=== PATIENT | female | born 1980 | race Caucasian/White ===

== ENCOUNTER 2022-10-14 22:39 | Inpatient (IN) | payer OTHER ==
[~2022-10-14] VITALS: Ht 167.6 cm; Wt 209.6 kg
[2022-10-14 23:10] VITALS: BP 140/81
--- NOTE | 2022-10-14 23:17 | NUR ---
TO LOBBY FOLLOWING TRIAGE
--- NOTE | 2022-10-14 23:30 | NUR ---
41 Y/O F presents with L flank pain radiating to shoulder. pt states bilateral ears are ringing with some flem and a headache. pt stated she had the flu xlast weekand has NV and denies diarrhea. pmh- asthma, htn, pre diabetic, surgery at 18 y/o R ovary removed and appendix. NKA
--- NOTE | 2022-10-14 23:51 | NUR ---
pt to bed 5 ambulatory
[2022-10-14] MEDS ORDERED: KETOROLAC 15 MG/ML VIAL IM ONE (23:55)
--- NOTE | 2022-10-15 00:04 | NUR ---
X-Ray at bedside.
[2022-10-15 00:09] LABS: BASOPHILS # (AUTO) 0.1 K/uL (0.00-0.22); BASOPHILS % (AUTO) 0.5 % (0.0-2.0); EOSINOPHILS # (AUTO) 0.1 K/uL (0-0.4); EOSINOPHILS % (AUTO) 1.2 % (0.0-4.0); LYMPHOCYTES # (AUTO) 3.1 K/uL (2.5-16.5); LYMPHOCYTES % (AUTO) 24.8 % (20.5-51.1); MEAN CORPUSCULAR HEMOGLOBIN 17 pg (27-31); MEAN CORPUSCULAR HGB CONC 29 g/dL (33-37); MEAN CORPUSCULAR VOLUME 59.1 fL (80-94); MONOCYTES # (AUTO) 0.9 K/uL (0.8-1.0); MONOCYTES % (AUTO) 7.3 % (1.7-9.3); NEUTROPHILS # (AUTO) 8.3 K/uL (1.8-7.7); NEUTROPHILS % (AUTO) 66.2 % (42.2-75.2); PLATELET COUNT (AUTO) 527 K/uL (140-450); RED BLOOD CELL COUNT(AUTO) 2.83 MIL/uL (4.20-5.40); RED CELL DISTRIBUTION WIDTH 22.7 % (11.6-13.7); WHITE BLOOD COUNT (AUTO) 12.5 K/uL (4.8-10.8)
[2022-10-15 00:17] LABS: HEMATOCRIT 16.7 % (36-48); HEMOGLOBIN 4.8 g/dL (12.0-16.0)
--- NOTE | 2022-10-15 00:24 | NUR ---
Dr. Lundberg examining patient.
[2022-10-15 00:26] LABS: ALBUMIN 2.6 g/dL (3.4-5.0); ANION GAP 13.2 (8-16); CARBON DIOXIDE 26.2 mmol/L (21-32); CREATININE 1.3 mg/dL (0.6-1.3); POTASSIUM 3.4 mmol/L (3.5-5.1); TOTAL BILIRUBIN 0.5 mg/dL (0.0-1.0)
[2022-10-15] MEDS ORDERED: MORPHINE SULFATE 4 MG/ML SYR IVP ONE (00:45)
[2022-10-15 00:53] LABS: BASOPHILS # (AUTO) 0.1 K/uL (0.00-0.22); BASOPHILS % (AUTO) 0.4 % (0.0-2.0); EOSINOPHILS # (AUTO) 0.1 K/uL (0-0.4); EOSINOPHILS % (AUTO) 1.2 % (0.0-4.0); LYMPHOCYTES # (AUTO) 3.1 K/uL (2.5-16.5); LYMPHOCYTES % (AUTO) 26.2 % (20.5-51.1); MEAN CORPUSCULAR HEMOGLOBIN 17 pg (27-31); MEAN CORPUSCULAR HGB CONC 28 g/dL (33-37); MEAN CORPUSCULAR VOLUME 59.8 fL (80-94); NEUTROPHILS # (AUTO) 7.7 K/uL (1.8-7.7); NEUTROPHILS % (AUTO) 64.2 % (42.2-75.2); PLATELET COUNT (AUTO) 507 K/uL (140-450); RED BLOOD CELL COUNT(AUTO) 3.03 MIL/uL (4.20-5.40); RED CELL DISTRIBUTION WIDTH 22.6 % (11.6-13.7)
[2022-10-15 00:55] LABS: HEMATOCRIT 18.1 % (36-48); HEMOGLOBIN 5.1 g/dL (12.0-16.0)
--- NOTE | 2022-10-15 01:15 | NUR ---
unable to obtain UA. pt stated she does not have to
--- NOTE | 2022-10-15 03:01 | NUR ---
Sister Jayla [phone]. per pt, consent given to commuicate with sister
--- NOTE | 2022-10-15 03:25 | NUR ---
tried calling pt's sister x2 and went straight to voicemail.
--- NOTE | 2022-10-15 04:02 | NUR ---
The patient's care was reviewed and supervised by Umm Miller RN.
--- NOTE | 2022-10-15 04:02 | NUR ---
Patient will be admitted to care of April FOSTER. Admited to Telemetry. Will go to room 112A. Belongings list completed. Report to Sheeba.
--- NOTE | 2022-10-15 04:20 | NUR ---
RECEIVED PT FROM ER , AAOX4 , DENIES PAIN AT THIS TIME , IV SITE INTACT AND PATENT , ADM. ASSESSMENT WILL BE DONE , PUT PT ON FALL PREVENTION PROTOCOL , CALL LIGHT WITHIN REACH . .
[2022-10-15 04:30] VITALS: BP 112/58
--- NOTE | 2022-10-15 05:40 | NUR ---
BT STARTED - AT 20 CC/HR - INSTRUCT PT TELL ME IF SHE FEEL ANY UNUSUAL SIGNS AND SYMPTOMS - PT VERBALIZES UNDERSTANDING .
[2022-10-15] MEDS ORDERED: KETOROLAC 15 MG/ML VIAL IVP SCH (06:50)
--- NOTE | 2022-10-15 06:58 | NUR ---
PT C/O SUDDENLY DEVELPOS CHEST PAIN AND BACK PAIN , PUT PT ON O2 AT 2LPM , O2 SAT 100 % HR 85 , BP 112/41 , TEMP 98.8 F , INFORM CHARGE NURSE .- REFER TO DR. MARIPOSA BOUDREAUX . Addendum: 10/15/22 at 07 by Sheeba Nuñez RN the above nurses notes an time error entry instead of 0655- beau Addendum: 10/15/22 at 07 by Sheeba Nuñez RN at 0655 stopped bt - my charge nurse gloria sent the bllod unit including the tubings to lab , and gloria run the nss 1 l at 100cc/ hr .
--- NOTE | 2022-10-15 07:21 | NUR ---
toradol tiv push given as ordered , bp 112/ 56 , o2 sat 100 % , rr 20 , hr 84 , t 98.8 f - will endorsed , awake , aaox4 , call light within reach .
--- NOTE | 2022-10-15 07:40 | NUR ---
ENDORSED PT FOR CONT. OF CARE , AWAKE .
[2022-10-15] MEDS ORDERED: ZOLPIDEM 10 MG TAB PO PRN (07:45)
[2022-10-15] MEDS ORDERED: ACETAMINOPHEN 325 MG TAB PO PRN (07:45)
[2022-10-15] MEDS ORDERED: POTASSIUM CHLORIDE 10 MEQ TABER PO PRN (07:45)
[2022-10-15] MEDS ORDERED: ONDANSETRON 4 MG/2 ML VIAL IVP PRN (07:45)
[2022-10-15] MEDS ORDERED: MAG SULF 2000 MG/WATER PREMIX 50 ML IV PRN (07:45)
[2022-10-15] MEDS ORDERED: DOCUSATE SODIUM 100 MG GELCAP PO PRN (07:45)
[2022-10-15] MEDS ORDERED: LORazepam 2 MG/ML VIAL IVP PRN (07:45)
[2022-10-15 08:00] VITALS: BP 131/62
--- NOTE | 2022-10-15 09:10 | NUR ---
FOUND PATIENT AWAKE AND ALERT VISITING WITH FAMILY - PATIENT WAS ON 2L NASAL CANNULA SATURATING 100%. PLACED PATIENT ON ROOM AIR - SATURATIONS REMAINED IN THE MID-90S - SPOKE TO FAMILY - PATIENT MAY HAVE SLEEP APNEA AND MAY BENEFIT A SLEEP STUDY BY HER PRIMARY CARE PROVIDER.
--- NOTE | 2022-10-15 09:25 | NUR ---
PATIENT HAS BEEN SCREENED AND CATEGORIZED LOW NUTRITION RISK. PATIENT WILL BE SEEN WITHIN 7 DAYS OF ADMISSION. 10/22/22 REVIEWED BY LUC[address]A MCKEE RD
--- NOTE | 2022-10-15 11:49 | NUR ---
DC PLANNING: FAXED THE STABLE FOR TRANSFER TO [facility] [phone]. CM TO FOLLOW Addendum: 10/16/22 at 1153 by Rose Mojica RN DC PLANNING: CALLED [facility] SPOKE WITH PATSY CASE OIL LEASE OPERATOR UPDATED PT'S CLINICAL'S AND PROVIDE DR MONGE'S NUMBER AND UNIT NUMBER PER PATSY NO CM ASSIGNED YET, AND ONCE ITS ASSIGNED WILL CALL BACK CM TO FOLLOW Addendum: 10/16/22 at 1620 by Rose Mojica RN DC PLANNING: RECEIVED A CALL FROM [facility] SPOKE WITH LYLE STATED YESTERDAY HER COMMERCIAL CORRESPONDENT STATED UNSTABLE TO TRANSFER WITH LOW HEMOGLOBIN 5.1 BUT TODAY H/H IS 6.1/20.2 WILL DISCUSS IT WITH RAWLS AND IF HE AGREES WILL CALL THE UNIT AND TRANSFER PATIENT. LYLE REQUESTED NEW STABLE FOR TRANSFER ORDER FAXED TO [facility] [phone]. Addendum: 10/17/22 at 1026 by Rose Mojica RN DC PLANNING: RECEIVED A CALL FROM [facility] SPOKE WITH JAIRO [phone] UPDATED PT'S CLINICAL AND PER JAIRO WILL LOOK FOR A BED AT [place] OR [facility]. CM NOTIFIED PATIENT, AGREED WITH TRANSFER EITHER ONE IS OK WITH PATIENT.
[2022-10-15 12:00] VITALS: BP 134/57
[2022-10-15 15:20] LABS: APPEARANCE,URINE CLEAR (CLEAR); BILIRUBIN,URINE NEGATIVE (NEGATIVE); BLOOD, URINE 1+ (NEGATIVE); COLOR,URINE YELLOW (YELLOW); LEUKOCYTE ESTERASE ,URINE 1+ (NEGATIVE); NITRITE, URINE POSITIVE (NEGATIVE); UGLUCOSE NEGATIVE (NEGATIVE)
[2022-10-15 15:31] LABS: RBC,URINE 11-20 (MOD) /HPF (0-5)
[2022-10-15 16:00] VITALS: BP 145/79
--- NOTE | 2022-10-15 19:30 | NUR ---
RECEIVED REPORT FROM DAY SHIFT NURSE TIARRA FOR CONTINUITY OF CARE. PATIENT IS A&O X4. PATIENT IS ON ROOM AIR, BREATHING IS NORMAL WITH SYMMETRICAL RISE AND FALL OF CHEST. IV IS A 20G RAC, NO FLUIDS RUNNING AT THIS TIME (SALINE LOCKED). PATIENT IS SITTING UP IN BED WATCHING TV WHILE VISITING WITH SISTER (TIM, ). BED IS IN LOWEST POSITION, WHEELS LOCKED CALL LIGHT IN PLACE. WILL CONTINUE TO OBSERVE PATIENT.
--- NOTE | 2022-10-15 19:36 | NUR ---
ENDORSE PATIENT IN STABLE CONDITION TO PM SHIFT NURSE. PATIENT JUST HAVE BM AND OCCULT STOOL SPECIMEN JUST COLLECTED. STILL PENDING FOR BLOOD TRANSFUSING BECAUSE MORNING TIME PATIENT HAD SEVERE PAIN DURING FIRST UNIT BLOOD TRANSFUSION. TRANSFUSION STOP; BLOOD & TUBE SENT TO LAB.
[2022-10-15 20:00] VITALS: BP 137/57
[2022-10-15] MEDS ORDERED: diphenhydrAMINE 50 MG/ML VIAL IVP SCH (21:00)
--- NOTE | 2022-10-15 22:31 | NUR ---
RECEIVED CALL FROM LAB THAT [facility] HAS VERIFIED THAT THERE IS NO ISSUE WITH BLOOD AND IT IS OKAY TO TRANSFUSE TO PATIENT. MESSAGED DR. MONGE ABOUT THIS AND ASKED FOR AN ORDER OF BENADRYL TO PREVENT REACTION. ORDERED ONE TIME DOSE 25MG IVP. SET BLOOD IV LINE UP AND PULLED BENADRYL TO ADMINISTER. WENT TO ADMINISTER MEDICATION AND COULD NOT FLUSH IV. CHECKED IV SITE, IV SITE WAS NOT PATENT. NEW IV WAS ATTEMPTED BY MYSELF, CHARGE NURSE CARLTON, AND DIOGENES LANDAVERDE. NEW IV SITE COULD NOT BE PLACED INTO PATIENT. NOTIFIED ER, ER WILL SEND A NURSE TO ATTEMPT IV. BLOOD IS STILL AT LAB. WILL CONTINUE TO OBSERVE PATIENT.
[2022-10-16] VITALS: BP 172/74
--- NOTE | 2022-10-16 00:30 | NUR ---
MANUEL FROM ER WAS ABLE TO INSERT IV INTO PATIENT. NEW IV IS A 22G LEFT HAND. ADMINISTERED BENADRYL 25MG IVP TO PATIENT. OBTAINED BLOOD FROM LAB. VERIFIED BLOOD WITH CHARGE NURSE KRYSTEN, AND STARTED BLOOD. BLOOD ENTERED PATIENT'S VEIN AT 0002. BLOOD IS CURRENTLY TRANSFUSING. WILL CONTINUE TO OBSERVE PATIENT. PRE-BLOOD VITALS WERE: TEMP 97.4, HR, 90, BP 172/74, RR 18. VITALS 15 MINUTES AFTER BLOOD REACHED VEIN: TEMP 97.3, HR 93, BP 150/88, RR 18. PATIENT IS SLEEPING, BLOOD IS STILL RUNNING. WILL CONTINUE TO OBSERVE PATIENT.
[2022-10-16 04:00] VITALS: BP 143/84
--- NOTE | 2022-10-16 04:08 | NUR ---
FIRST UNIT OF BLOOD FINISHED AT 0315. POST VITALS WERE: BP 143/84, HR 90, TEMP 97.0, RR 18. PRE-VITALS FOR SECOND UNIT WERE THE SAME POST VITALS FOR FIRST UNIT. SECOND UNIT OF BLOOD WAS OBTAINED FROM BLOOD BANK AND VERIFIED WITH CHARGE NURSE KRYSTEN. BLOOD ENTERED VEIN AT 0345; 15 MINUTE VITALS WERE OBTAINED AT 0400 AND THEY WERE: TEMP 97.0, HR 90, BP 151/86, RR 18. NO REACTION OCCURRED DURING FIRST UNIT TRANSFUSION AND FIRST 15 MINUTES OF SECOND UNIT TRANSFUSION. PATIENT IS AWAKE PLAYING GAME ON [employer] PHONE SITTING IN HIGH-FOWLERS POSITION. BREATHING IS NORMAL WITH SYMMETRICAL RISE AND FALL OF CHEST. WILL CONTINUE TO OBSERVE PATIENT.
--- NOTE | 2022-10-16 07:10 | NUR ---
ENDORSED TO DAY SHIFT NURSE KRYSTLE FOR CONTINUITY OF CARE. PATIENT IS STABLE.
--- NOTE | 2022-10-16 07:10 | NUR ---
BLOOD FINISHING UP, DAY SHIFT NURSE KRYSTLE WILL FINISH UP BLOOD.
[2022-10-16 08:00] VITALS: BP 126/59
[2022-10-16] MEDS: SODIUM FERRIC GLUCONATE 125 MG in NACL 0.9% 100 ML IV SCH ×2 (08:35→09:35)
[2022-10-16 10:18] LABS: BASOPHILS % (AUTO) 0.3 % (0.0-2.0); EOSINOPHILS # (AUTO) 0.2 K/uL (0-0.4); EOSINOPHILS % (AUTO) 1.7 % (0.0-4.0); HEMATOCRIT 20.7 % (36-48); LYMPHOCYTES # (AUTO) 2.1 K/uL (2.5-16.5); LYMPHOCYTES % (AUTO) 20.8 % (20.5-51.1); MEAN CORPUSCULAR HEMOGLOBIN 20 pg (27-31); MEAN CORPUSCULAR HGB CONC 31 g/dL (33-37); MONOCYTES # (AUTO) 0.5 K/uL (0.8-1.0); MONOCYTES % (AUTO) 5.1 % (1.7-9.3); NEUTROPHILS # (AUTO) 7.1 K/uL (1.8-7.7); NEUTROPHILS % (AUTO) 72.1 % (42.2-75.2); PLATELET COUNT (AUTO) 450 K/uL (140-450); RED BLOOD CELL COUNT(AUTO) 3.19 MIL/uL (4.20-5.40); RED CELL DISTRIBUTION WIDTH 30.3 % (11.6-13.7); WHITE BLOOD COUNT (AUTO) 9.9 K/uL (4.8-10.8)
[2022-10-16 10:23] LABS: HEMOGLOBIN 6.5 g/dL (12.0-16.0)
[2022-10-16 10:47] LABS: ANION GAP 8.5 (8-16); CREATININE 0.9 mg/dL (0.6-1.3); POTASSIUM 3.5 mmol/L (3.5-5.1)
[2022-10-16 12:00] VITALS: BP 111/53
[2022-10-16 16:00] VITALS: BP 130/50
[2022-10-16 17:34] LABS: HEMATOCRIT 23.6 % (36-48); HEMOGLOBIN 7.4 g/dL (12.0-16.0)
--- NOTE | 2022-10-16 18:47 | NUR ---
OUTCOME SUMMARY DENIES PAIN. 1 UNIT PRBC GIVEN PER MD ORDER, REPEAT H/H: 7.4/23.6. ONGOING VAGINAL BLEEDING NOTED. SATING 96% RA. ALL NEEDS MET, SAFETY AND COMFORT MEASURES MAINTAINED, CALL LIGHT WITHIN REACH.
--- NOTE | 2022-10-16 19:30 | NUR ---
RECEIVED REPORT FROM DAY SHIFT RN FOR CONTINUITY OF CARE. PT IS AWAKE AND ALERT. PT IS NOT IN ANY DISTRESS. BED AT THE LOWEST POSITION. HEAD OF THE BED RAISED. POC OF CARE DISCUSSED. WILL CONTINUE TO MONITOR THE PT.
[2022-10-16 20:00] VITALS: BP 144/64
--- NOTE | 2022-10-16 22:00 | NUR ---
DR. HOWE IS HERE IN PT ROOM.
[2022-10-17] VITALS: BP 140/57
[2022-10-17 04:00] VITALS: BP 157/77
--- NOTE | 2022-10-17 04:00 | NUR ---
VITAL SIGNS TAKEN AND STABLE. PT NOT IN ANY DISTRESS. PT HAS NO COMPLAINS AT THIS TIME. WILL CONTINUE TO MONITOR THE PT.
[2022-10-17 06:58] LABS: BASOPHILS # (AUTO) 0.1 K/uL (0.00-0.22); BASOPHILS % (AUTO) 0.4 % (0.0-2.0); EOSINOPHILS # (AUTO) 0.3 K/uL (0-0.4); EOSINOPHILS % (AUTO) 1.9 % (0.0-4.0); HEMATOCRIT 22.6 % (36-48); LYMPHOCYTES # (AUTO) 2.7 K/uL (2.5-16.5); LYMPHOCYTES % (AUTO) 16.8 % (20.5-51.1); MEAN CORPUSCULAR HEMOGLOBIN 21 pg (27-31); MEAN CORPUSCULAR HGB CONC 31 g/dL (33-37); MEAN CORPUSCULAR VOLUME 67.4 fL (80-94); MONOCYTES # (AUTO) 1.1 K/uL (0.8-1.0); MONOCYTES % (AUTO) 6.6 % (1.7-9.3); NEUTROPHILS # (AUTO) 12.1 K/uL (1.8-7.7); NEUTROPHILS % (AUTO) 74.3 % (42.2-75.2); PLATELET COUNT (AUTO) 403 K/uL (140-450); RED BLOOD CELL COUNT(AUTO) 3.36 MIL/uL (4.20-5.40); RED CELL DISTRIBUTION WIDTH 32.4 % (11.6-13.7); WHITE BLOOD COUNT (AUTO) 16.3 K/uL (4.8-10.8)
[2022-10-17 06:59] LABS: ANION GAP 11.8 (8-16); CREATININE 0.8 mg/dL (0.6-1.3); POTASSIUM 3.8 mmol/L (3.5-5.1)
--- NOTE | 2022-10-17 07:09 | NUR ---
ENDORSED PT TO DAY SHIFT RN FOR CONTINUITY OF CARE. PT IS STABLE.
[2022-10-17 08:00] VITALS: BP 150/81
[2022-10-17] MEDS ORDERED: medroxyPROGESTERone 10 MG TAB PO SCH (09:00)
[2022-10-17] MEDS ORDERED: LEVOFLOXACIN 500 MG/D5W PREMIX 100 ML IV SCH (09:00)
[2022-10-17] MEDS: SODIUM FERRIC GLUCONATE 125 MG in NACL 0.9% 100 ML IV SCH (10:03)
[2022-10-17 10:07] LABS: FOLIC ACID 3.5 ng/mL (>3.0)
[2022-10-17] MEDS: MORPHINE SULFATE 2 MG/ML SYR IVP PRN ×2 (10:13→15:54)
[2022-10-17 12:00] VITALS: BP 124/55
[2022-10-17 16:00] VITALS: BP 138/76
[2022-10-17 18:37] VITALS: BP 138/74
--- NOTE | 2022-10-17 19:30 | NUR ---
RECEIVED REPORT FROM DAY SHIFT RN RICHIE FOR CONTINUITY OF CARE. PT IS BEING TRANSPORTED TO [facility] AT 1930. STILL WAITING FOR TRANSPORTATION. PT IS CURRENTLY RUNNING 1 UNIT OF BLOOD. ALMOST FINISHED. NO TRANSFUSION REACTION NOTED.
--- NOTE | 2022-10-17 20:25 | NUR ---
BLOOD TRANSFUSION WAS FINISHED WITH NO COMPLICATIONS. PT WAS TRANSPORTED TO [facility]. PT IS STABLE.
== END 2022-10-17 20:25 | disposition short-term general hospital (02) | DRG 760 ==
LOC: MED 22:39 → MTU 10-15 03:23 → MMU 10-15 04:00 → MTU 10-15 04:01
PROVIDERS: ADMIT Family Medicine; ATTEND Family Medicine
PROC: 30233N1 Transfusion of Nonautologous Red Blood Cells into Peripheral Vein, Percutaneous Approach (ICD-10-PCS; principal; 2022-10-17)
DX: D25.1 Intramural leiomyoma of uterus (principal); Z68.45 Body mass index [BMI] 70 or greater, adult; N93.9 Abnormal uterine and vaginal bleeding, unspecified; N80.03 Adenomyosis of the uterus; I10 Essential (primary) hypertension; R73.03 Prediabetes; D75.839 Thrombocytosis, unspecified; E66.01 Morbid (severe) obesity due to excess calories; D50.9 Iron deficiency anemia, unspecified; Z20.822 Contact with and (suspected) exposure to COVID-19; Z90.49 Acquired absence of other specified parts of digestive tract
CPT/HCPCS: 36415; 36430; 71045; 76830; 80048; 80053; 81001; 82272; 82607; 82728; 82746; 83540; 83690; 83735; 83880; 84484; 84702; 85018; 85025; 86886; 86900; 86901; 86920; 87081; 87086; 93005; 96374; 99291; J1200; J1885; J1956; J2270; J2916; P9016; Q0092